=== PATIENT | female | born 1945 | race Two or more races ===

== ENCOUNTER 2016-11-22 16:49 | Inpatient (IN) | payer MEDICARE ==
[~2016-11-22] VITALS: Ht 154.9 cm; Wt 59.9 kg
[2016-11-22] MEDS ORDERED: DAPA1TAB3 PO (17:20)
[2016-11-22] MEDS ORDERED: ATOR40TA PO (17:20)
[2016-11-22] MEDS ORDERED: AMLO10TA2 PO (17:20)
[2016-11-22] MEDS ORDERED: INSU100I26 SQ (17:20)
[2016-11-22] MEDS ORDERED: LEVO100T10 PO (17:20)
[2016-11-22] MEDS ORDERED: ATEN50TA PO (17:20)
[2016-11-22] MEDS ORDERED: ASPI81TA31 PO (17:20)
[2016-11-22] MEDS ORDERED: IV NORMAL SALINE 500 ML BAG IV ONE (17:30)
[2016-11-22 17:41] LABS: BASOPHILS % (AUTO) 0.4 % (0.0-2.0); EOSINOPHILS # (AUTO) 0.3 K/uL (0.0-0.7); EOSINOPHILS % (AUTO) 3.5 % (0.0-7.0); HEMOGLOBIN 14.4 G/DL (12.0-16.0); LYMPHOCYTES # (AUTO) 2.2 K/UL (0.8-4.8); LYMPHOCYTES % (AUTO) 23.1 % (20.5-51.5); MEAN CORPUSCULAR HEMOGLOBIN 28.8 UUG (27.0-31.0); MEAN CORPUSCULAR HGB CONC 33 g/dL (32.0-37.0); MEAN CORPUSCULAR VOLUME 87.8 FL (81.0-99.0); MONOCYTES # (AUTO) 0.8 K/UL (0.1-1.30); NEUTROPHILS # (AUTO) 6.1 K/UL (1.8-8.9); PLATELET COUNT (AUTO) 283 K/UL (150-450); RED BLOOD CELL COUNT(AUTO) 5.02 MIL/UL (4.2-5.4); WHITE BLOOD COUNT (AUTO) 9.4 K/UL (4.0-11.2)
--- NOTE | 2016-11-22 17:47 | NUR ---
Pt back from CT.
[2016-11-22 17:51] LABS: CREATININE 0.7 mg/dL (0.6-1.3); POTASSIUM 3.8 mmol/L (3.5-5.1)
--- NOTE | 2016-11-22 18:00 | NUR ---
Per Dr. Henry she spoke with Dr. Smith via telephone and pt may be admitted to tele.
[2016-11-22 18:02] LABS: BILIRUBIN,DIRECT 0.1 mg/dL (0.0-0.2); BILIRUBIN,TOTAL 0.4 mg/dL (0.2-1.0); TOTAL PROTEIN, SERUM 7.7 g/dL (6.4-8.2)
--- NOTE | 2016-11-22 18:49 | NUR ---
Pt trans to tele, NAD noted.
--- NOTE | 2016-11-22 19:30 | NUR ---
nsg: pt received fr er, a/o x 4, accompanied by daughter. denies pain or any discomfort. the only c/o is unsteady gait, pt uses fww but appears to be shuffling. tele, SR. cont to monitor.
[2016-11-22 20:00] VITALS: BP 155/103
[2016-11-22] MEDS ORDERED: ACETAMINOPHEN 325 MG TABLET PO PRN (20:45)
[2016-11-22] MEDS ORDERED: ONDANSETRON 4 MG/2 ML VIAL IV PRN (20:45)
[2016-11-22] MEDS ORDERED: TEMAZEPAM 15 MG CAPSULE PO PRN (20:45)
[2016-11-22] MEDS ORDERED: HYDROCODONE/APAP 5-325MG TABLET PO PRN (20:45)
[2016-11-22] MEDS ORDERED: DEXTROSE 50% 50 ML DISP.SYRIN IV PRN (20:45)
[2016-11-22] MEDS: ATORVASTATIN 40 MG TABLET PO SCH (21:19)
[2016-11-22] MEDS: hydrALAZINE HCL 25 MG TABLET PO PRN (21:19)
[2016-11-22] MEDS: BLOOD SUGAR DIAGNOSTIC 1 EACH STRIP VI SCH (21:23)
[2016-11-22 22:38] LABS: *BILIRUBIN,URIN NEGATIVE (NEGATIVE); *BLOOD, URINE Trace-intact (NEGATIVE); *CLARITY,URINE CLEAR (CLEAR); *COLOR,URINE YELLOW (YELLOW); *KETONES,URINE NEGATIVE (NEGATIVE); *PROTEIN,URINE NEGATIVE (NEGATIVE); *UROBILINOGEN,URINE 0.2 E.U./dl (NORMAL); LEUKOCYTE ESTERASE ,URINE NEGATIVE (NEGATIVE); NITRITE, URINE NEGATIVE (NEGATIVE); PH,URINE 7.5 (5.0-8.0)
[2016-11-22 22:42] LABS: UGLUCOSE 2+ (NEGATIVE)
[2016-11-22 22:44] LABS: BACTERIA,URINE FEW /HPF (NONE SEEN); RBC,URINE 0-3 /HPF (0-3); SQUAMOUS EPITHELIAL CELL,UR FEW /HPF (NONE SEEN); WBC,URINE 0-3 /HPF (0-3)
--- NOTE | 2016-11-23 | NUR ---
nsg: no change in condition.
[2016-11-23 00:05] VITALS: BP 142/54
--- NOTE | 2016-11-23 05:32 | NUR ---
nsg: all needs attended. no acute distress noted.
[2016-11-23 05:55] VITALS: BP 172/69
[2016-11-23] MEDS: hydrALAZINE HCL 25 MG TABLET PO PRN ×2 (06:04→21:39)
[2016-11-23] MEDS: LEVOTHYROXINE SODIUM 50 MCG TABLET PO SCH (06:04)
[2016-11-23] MEDS: PANTOPRAZOLE SODIUM 40 MG TABLET.DR PO SCH (06:04)
[2016-11-23] MEDS: BLOOD SUGAR DIAGNOSTIC 1 EACH STRIP VI SCH ×4 (06:08→21:38)
[2016-11-23 06:59] LABS: BASOPHILS % (AUTO) 0.6 % (0.0-2.0); EOSINOPHILS # (AUTO) 0.4 K/uL (0.0-0.7); EOSINOPHILS % (AUTO) 5.7 % (0.0-7.0); LYMPHOCYTES # (AUTO) 2.3 K/UL (0.8-4.8); LYMPHOCYTES % (AUTO) 31.7 % (20.5-51.5); MEAN CORPUSCULAR HEMOGLOBIN 29.5 UUG (27.0-31.0); MEAN CORPUSCULAR HGB CONC 33 g/dL (32.0-37.0); MEAN CORPUSCULAR VOLUME 88.4 FL (81.0-99.0); MONOCYTES # (AUTO) 0.7 K/UL (0.1-1.30); MONOCYTES % (AUTO) 10.3 % (0.0-11.0); NEUTROPHILS # (AUTO) 3.8 K/UL (1.8-8.9); NEUTROPHILS % (AUTO) 51.7 % (38.5-71.5); PLATELET COUNT (AUTO) 267 K/UL (150-450); RED BLOOD CELL COUNT(AUTO) 4.75 MIL/UL (4.2-5.4); WHITE BLOOD COUNT (AUTO) 7.2 K/UL (4.0-11.2)
[2016-11-23 07:32] LABS: BILIRUBIN,TOTAL 0.6 mg/dL (0.2-1.0); CREATININE 0.6 mg/dL (0.6-1.3); PHOSPHOROUS 3.3 mg/dL (2.5-4.9); POTASSIUM 3.6 mmol/L (3.5-5.1); TOTAL PROTEIN, SERUM 7.2 g/dL (6.4-8.2)
[2016-11-23] MEDS: INSULIN REGULAR, HUMAN 300 UNIT/3 ML VIAL SQ PRN ×4 (08:04→21:46)
[2016-11-23] MEDS: AMLODIPINE 10 MG TABLET PO SCH (08:55)
[2016-11-23] MEDS: ASPIRIN 81 MG TAB.CHEW PO SCH (08:55)
[2016-11-23] MEDS: ATENOLOL 50 MG TABLET PO SCH (08:56)
[2016-11-23] MEDS ORDERED: METFORMIN HCL PO SCH (09:00)
[2016-11-23] MEDS ORDERED: DAPAGLIFLOZIN PO SCH (09:00)
[2016-11-23] MEDS ORDERED: [UNRECOGNIZED DRUG - OTHER] PO SCH (09:00)
--- NOTE | 2016-11-23 09:00 | NUR ---
PATIENT IS AWAKE ALERT AND ORIENTED DENIES PAIN OR DISCOMFORTS AT THIS TIME.NO S/S OF HYPO/HYPERGLYCEMIC REACTIONS AT THIS TIME.MADE COMFORTABLE AND WILL CONTINUE TO OBSERVE.
--- NOTE | 2016-11-23 11:00 | NUR ---
PATIENT SEEN BY THE PHYSICAL THERAPIST FOR AMBULATION IN THE [facility]ALL[facility]AY AND PATIENT IS NOTED TO BE SHUFFLING HER RIGHT LEG STATED FEELS WEAKER ON THE RIGHT LOWER EXT BUT DENIES PAIN.
[2016-11-23 11:40] VITALS: BP 144/59
[2016-11-23 16:12] VITALS: BP 157/60
--- NOTE | 2016-11-23 16:41 | NUR ---
PATIENT SEEN AND EXAMINED BY DR WEAVER WITH NEW ORDERS AND NOTED SHE IS FOR MRI TODAY. Addendum: 11/23/16 at 1933 by CATERINA PALACIO RN ERROR WRONG CHARTING
--- NOTE | 2016-11-23 17:00 | NUR ---
PATIENT SEEN AND EXAMINED BY DR WEAVER AND HE SPOKE WITH THE PATIENTS DAUGHTER AT LENGTH AND HE STATED THAT HE WILL REVIEW THE RESULTS OF THE MRI AND CT THAT THE PATIENT HAD IN [place] IN SEPTEMBER 2016.
--- NOTE | 2016-11-23 18:30 | NUR ---
CONTINUE TO REQUIRE ASSIST WITH AMBULATING TO THE BATHROOM WITH A FRONT WHEEL WALKER TENDS TO SHUFFLE HER RIGHT LEG BUT PICKS UP WHEN DIRECTED.DENIES C/O AT THIS TIME.
[2016-11-23 20:00] VITALS: BP 156/70
[2016-11-23] MEDS: ATORVASTATIN 40 MG TABLET PO SCH (21:39)
[2016-11-24 05:34] VITALS: BP 154/63
[2016-11-24] MEDS: LEVOTHYROXINE SODIUM 50 MCG TABLET PO SCH (06:20)
[2016-11-24] MEDS: PANTOPRAZOLE SODIUM 40 MG TABLET.DR PO SCH (06:20)
[2016-11-24] MEDS: hydrALAZINE HCL 25 MG TABLET PO PRN (06:21)
[2016-11-24 07:15] LABS: BASOPHILS % (AUTO) 0.6 % (0.0-2.0); EOSINOPHILS # (AUTO) 0.4 K/uL (0.0-0.7); EOSINOPHILS % (AUTO) 5.8 % (0.0-7.0); HEMATOCRIT 43.1 % (37-47); HEMOGLOBIN 14.3 G/DL (12.0-16.0); LYMPHOCYTES # (AUTO) 2.3 K/UL (0.8-4.8); MEAN CORPUSCULAR HEMOGLOBIN 29.2 UUG (27.0-31.0); MEAN CORPUSCULAR HGB CONC 33 g/dL (32.0-37.0); MEAN CORPUSCULAR VOLUME 87.9 FL (81.0-99.0); MONOCYTES # (AUTO) 0.5 K/UL (0.1-1.30); MONOCYTES % (AUTO) 7.3 % (0.0-11.0); NEUTROPHILS # (AUTO) 4.1 K/UL (1.8-8.9); NEUTROPHILS % (AUTO) 54.3 % (38.5-71.5); PLATELET COUNT (AUTO) 290 K/UL (150-450); WHITE BLOOD COUNT (AUTO) 7.3 K/UL (4.0-11.2)
[2016-11-24 08:03] LABS: CREATININE 0.5 mg/dL (0.6-1.3); MAGNESIUM 2.1 mg/dL (1.8-2.4); POTASSIUM 3.8 mmol/L (3.5-5.1)
[2016-11-24] MEDS: INSULIN REGULAR, HUMAN 300 UNIT/3 ML VIAL SQ PRN ×4 (08:39→21:30)
[2016-11-24] MEDS: BLOOD SUGAR DIAGNOSTIC 1 EACH STRIP VI SCH ×4 (08:40→21:28)
[2016-11-24] MEDS: ASPIRIN 81 MG TAB.CHEW PO SCH (08:51)
[2016-11-24] MEDS: ATENOLOL 50 MG TABLET PO SCH (08:52)
[2016-11-24] MEDS: AMLODIPINE 10 MG TABLET PO SCH (08:53)
[2016-11-24] MEDS: glipiZIDE 5 MG TABLET PO SCH ×2 (09:19→17:10)
[2016-11-24] MEDS: METFORMIN HCL 500 MG TABLET PO SCH ×2 (09:19→17:10)
[2016-11-24 11:44] VITALS: BP 147/66
[2016-11-24] MEDS: BENAZEPRIL HCL 10 MG TABLET PO SCH ×2 (12:40→21:15)
[2016-11-24 15:46] VITALS: BP 131/54
--- NOTE | 2016-11-24 18:46 | NUR ---
PT. OOB FOR MEALS AND TO BR USING WALKER AND SBA. REPORTS WEAKNESS IN LEGS BUT DENIES N/T/ NO ACUTE DISTRESS. DAUGHTER VISITED. GOOD APPETITE. VOIDING WELL.
--- NOTE | 2016-11-24 20:00 | NUR ---
patient awake,alert, oriented, not in acute distress.bp stable, bilateral lower legs weakness,using Fww,BRP with assistance,fall precautions,daughter visiting at bedside,plan of care explained to family,verbalized understanding,bed alarm on.
[2016-11-24 20:23] VITALS: BP 139/52
[2016-11-24] MEDS: ATORVASTATIN 40 MG TABLET PO SCH (21:15)
[2016-11-25 04:50] VITALS: BP 128/53
--- NOTE | 2016-11-25 06:00 | NUR ---
no acute distress noted,patient remains stable,fall precautions,bed alarm on,patient reinforced to call for assistance.
[2016-11-25] MEDS: PANTOPRAZOLE SODIUM 40 MG TABLET.DR PO SCH (06:15)
[2016-11-25] MEDS: LEVOTHYROXINE SODIUM 50 MCG TABLET PO SCH (06:15)
[2016-11-25] MEDS: BLOOD SUGAR DIAGNOSTIC 1 EACH STRIP VI SCH ×2 (06:21→11:54)
[2016-11-25] MEDS: METFORMIN HCL 500 MG TABLET PO SCH (08:14)
[2016-11-25] MEDS: ASPIRIN 81 MG TAB.CHEW PO SCH (08:15)
[2016-11-25] MEDS: BENAZEPRIL HCL 10 MG TABLET PO SCH (08:16)
[2016-11-25] MEDS: AMLODIPINE 10 MG TABLET PO SCH (08:16)
[2016-11-25] MEDS: ATENOLOL 50 MG TABLET PO SCH (08:17)
[2016-11-25] MEDS: glipiZIDE 5 MG TABLET PO SCH (08:19)
[2016-11-25] MEDS: INSULIN REGULAR, HUMAN 300 UNIT/3 ML VIAL SQ PRN ×2 (08:21→12:04)
[2016-11-25] MEDS ORDERED: SITAGLIPTIN PHOSPHATE 50 MG TABLET PO SCH (09:00)
[2016-11-25] MEDS ORDERED: LINAGLIPTIN 5 MG TABLET PO SCH (09:00)
[2016-11-25 11:02] VITALS: BP 163/51
[2016-11-25] MEDS ORDERED: METOPROLOL TARTRATE 25 MG TABLET PO SCH ×2 (12:00)
--- NOTE | 2016-11-25 14:35 | NUR ---
The patient will be discharged today to [facility] [ ; [address] [place] [address]] via [facility]. Spoke to the patient, her daughter [Gregoria - ] and her nephew [Norman Han - ]. They were all in agreement with her discharge. She signed a DPOAHC naming her daughter as the main decision maker and her nephew as an alternate. Also spoke to Gwyn from [facility] and he confirmed that they will admit the patient today. Her RN, Colleen, is aware of the discharge plan and will call the facility for the report.
[2016-11-25] MEDS ORDERED: CARB1TAB19 PO (14:37)
[2016-11-25] MEDS ORDERED: INSU100V28 SQ (14:37)
[2016-11-25] MEDS ORDERED: BENA10TA2 PO (14:37)
[2016-11-25] MEDS ORDERED: METF500T4 PO (14:37)
[2016-11-25] MEDS ORDERED: LINA5TAB PO (14:37)
[2016-11-25] MEDS ORDERED: Blood Sugar Diagnostic VI (14:37)
[2016-11-25] MEDS ORDERED: DEXT50DI8 IV (14:37)
[2016-11-25] MEDS ORDERED: TEMA15CA5 PO (14:37)
[2016-11-25] MEDS ORDERED: ACET325T53 PO (14:37)
[2016-11-25] MEDS ORDERED: PANT40TA2 PO (14:37)
[2016-11-25] MEDS ORDERED: MULT1TAB73 PO (14:37)
[2016-11-25] MEDS ORDERED: HYDR25TA86 PO (14:37)
[2016-11-25] MEDS ORDERED: ATOR20TA PO (14:37)
[2016-11-25] MEDS ORDERED: HYDR-3326 PO (14:37)
[2016-11-25] MEDS ORDERED: LEVO50TA8 PO (14:37)
[2016-11-25] MEDS ORDERED: METO50TA7 PO (14:37)
[2016-11-25] MEDS ORDERED: GLIP10TA11 PO (14:39)
[2016-11-25] MEDS ORDERED: CYAN10006 IM (14:39)
[2016-11-25 15:03] VITALS: BP 164/55
[2016-11-25] MEDS ORDERED: TEMAZEPAM 7.5 MG CAPSULE PO PRN (15:45)
--- NOTE | 2016-11-25 16:00 | NUR ---
DISCHARGING PATIENT TO [facility] IN A STABLE CONDITION, SBAR REPORT GIVEN TO JOSIAH MORGAN. PATIENT DENIED PAIN. VSS. PARTICIPATED WITH PT AND TOLERATED WELL. DISCHARGE INSTRUCTIONS PROVIDED. LIST OF BELONGINGS SIGNED AND ALL WAS TAKEN. IV REMOVED. PRESSURE APPLIED AND HEMOSTASIS ACHIEVED. PATIENT LEAVING VIA AMBULANCE.
== END 2016-11-25 15:30 | DRG 74 ==
LOC: ER 16:55 → TELE 18:45 → MED 11-23 18:24
PROVIDERS: ADMIT Internal Medicine; ATTEND Internal Medicine
DX: E11.42 Type 2 diabetes mellitus with diabetic polyneuropathy (principal); M81.0 Age-related osteoporosis without current pathological fracture; Z90.710 Acquired absence of both cervix and uterus; Z79.4 Long term (current) use of insulin; Z79.899 Other long term (current) drug therapy; Z87.891 Personal history of nicotine dependence; Z79.82 Long term (current) use of aspirin; E78.5 Hyperlipidemia, unspecified; I10 Essential (primary) hypertension; M47.9 Spondylosis, unspecified; I70.0 Atherosclerosis of aorta; E11.65 Type 2 diabetes mellitus with hyperglycemia; R26.81 Unsteadiness on feet; E05.90 Thyrotoxicosis, unspecified without thyrotoxic crisis or storm; E03.9 Hypothyroidism, unspecified
CPT/HCPCS: 36415; 70030-TC; 70450; 71010; 83605; 83735; 84100; 84443; 85025; 85730; 86592; 87040; 87086; 93005; 97116; 97161; 97165; 97530; A4663; J1815; J7030; J7040